=== PATIENT | male | born 1940 | race Caucasian/White ===

== ENCOUNTER → 2016-09-23 | Outpatient (CLI) | payer OTHER ==
[~2016-09-23] VITALS: Ht 175.3 cm; Wt 99.8 kg
[~2016-09-23] MED LIST: COMBIVENT RESPIM4 GM IH; CYMBALTA30 MG PO; DOXAZOSIN MESYLA8 MG PO; FINASTERIDE5 MG PO; NEURONTIN 300300 M1 PO; ROPINIROLE HCL2 MG PO; SINEMET 25-1001 EAC1 PO; SINEMET CR 50/21 TAB PO; XALATAN2.5 ML OPHTHALMIC
--- NOTE | ~2016-09-23 | P ---
[facility] [place] [address] PROCEDURE REPORT Name: LETTY MORGAN Room #: REG [facility]#: [id number] Admission: 09/23/16 Attend Phys: Vahid Holman MD Discharge: Date of : 40 Report #: [id number] THIS REPORT FOR: //name// CC: Miguel Holman DATE OF SERVICE: 09/23/2016 OUTPATIENT COLONOSCOPY REPORT BRIEF HISTORY: The patient is a 76-year-old male with a history of colon polyps, earlier this year, had a colonoscopy and flat polyps were identified in the proximal ascending colon. Biopsy revealed it to be tubular adenomas; however, the polyps were flat and due to his deep respiratory excursion ____ sleep apneic, there was too much colonic movement to remove these polyps. However, biopsies were obtained and there were tubular adenomas. He presents today for treatment or removal of these polyps. PREOPERATIVE DIAGNOSIS: Flat sessile polyps. POSTOPERATIVE DIAGNOSES: 1. Flat polyps, proximal ascending colon. 2. Moderately severe diverticulosis coli, primarily sigmoid colon. MEDICATIONS: Deep sedation with propofol per anesthesia. SPECIMEN: 1. Biopsies from proximal ascending colon polyp. 2. Polyp from proximal ascending colon. ESTIMATED BLOOD LOSS: 3 mL. PROCEDURE: Colonoscopy to cecum and terminal ileum with saline assisted polypectomy with biopsy and snare polypectomy as well as argon plasma coagulation of polypectomy site. FINDINGS: Prior to deep sedation, procedure of colonoscopy was discussed with the patient as well as potential risks and its complications including plans for removal of the polyps. He indicates that he understands and desires to proceed. DESCRIPTION OF PROCEDURE: With the patient in left lateral decubitus position, digital examination was completed, which revealed no abnormalities. Subsequently, the [employer] video colonoscope was introduced into the rectum and advanced under direct vision to the cecum. Done with some difficulty due to tortuosity of the colon, but cecum was reached, identified by the ileocecal [facility] [address] [place] [address] PROCEDURE REPORT Name: LETTY MORGAN Room #: REG [facility].#: [id number] Admission: 09/23/16 Attend Phys: Vahid Holman MD Discharge: Date of : 40 Report #: [id number] valve and the appendiceal orifice. At that point, the scope was slowly withdrawn and careful circumferential views obtained. Upon slow withdrawal of the scope, the prep was noted to be good. Mucosa normal limits, normal vascular pattern, normal light reflex. As we withdrew the scope in the very proximal ascending colon, there was a very subtle flat lesion with slight nodularity, very proximal ascending colon, it was probably 10-12 mm in length and 3-4 mm in width. It was elevated with saline. It was too flat to remove by snare and multiple biopsies were obtained. We then treated the polypectomy, started with argon plasma coagulation. Just very slightly distal to this lesion on the opposite wall, a stellate flat polypoid lesion was seen and it was probably about 8-9 mm in greatest dimension. It was removed with several passages of cold polypectomy snare as well as biopsies of residual fragments along the edge of the polypectomy site. Scope was further withdrawn and per the previous note, there was thought to be a polyp in the hepatic flexure. Biopsies were not obtained in the hepatic flexure. I could not find evidence of residual polyp in the region of the hepatic flexure. We withdrew the scope and the remaining mucosa appeared to be within normal limits. As we withdrew the scope through the sigmoid colon, he was noted to have moderately severe diverticular disease without endoscopic evidence of diverticulitis. The scope was withdrawn. Upon retroflexion, no abnormalities were seen. Scope was withdrawn. The patient tolerated the procedure well. CONDITION OF THE PATIENT UPON DISCHARGE: Following procedure, the patient was drowsy and he will be discharged home when fully ambulatory. INSTRUCTIONS TO THE PATIENT AND FAMILY AT THE TIME OF DISCHARGE: Two polyps removed and polypectomy sites treated as described above. We will follow up on the path report and make surveillance recommendations. More than likely, we will likely have him return in 1 year due to the difficulty removing these lesions as well as a piecemeal fashion removal. <ELECTRONICALLY SIGNED> By: Vahid Holman MD 09/24/16 0744 1221 2153 Vahid Holman MD /nt
--- NOTE | ~2016-09-23 | S ---
[facility] [place] [address] SURGICAL PATH RPT PROCEDURE Name: LETTY MORGAN Room #: REG [facility] M.Owen.#: [id number] Admission: 09/23/16 Date of : 40 Discharge: Report #: [id number] Path Case #: [id number] PATHOLOGY REPORT COLLECTION DATE: 09/23/2016 RECEIVED DATE: 09/23/2016 SUBMITTING PHYS: Dr. Vahid Holman OTHER PHYS: Dr. Miguel Pascual SPECIMEN(S) RECEIVED: A.Polyp @ proximal ascending colon B.Polyp @ proximal ascending colon * * * * * * * * * * * * FINAL DIAGNOSIS: A. Colonic mucosa "polyp at proximal ascending colon": - Fragments of tubular adenoma. - There is no evidence of high grade dysplasia or malignancy. B. Colonic mucosa "polyp at proximal ascending colon": - Fragments of tubular adenoma. - There is no evidence of high grade dysplasia or malignancy. (SHA:mm; 09/25/2016) PATHOLOGIST: Lyle Roth M.D. REPORT ELECTRONICALLY SIGNED BY: Lyle Roth M.D. DATE/TIME: 09/25/2016 10:27 * * * * * * * * * * * * GROSS PATHOLOGY: A. Received in formalin labeled "Letty Morgan, polyp at proximal ascending," and additionally labeled on requisition as, "polyp at proximal ascending colon," are six segments of arita soft tissue measuring 0.6 x 0.6 x 0.3 cm in aggregate dimensions and ranging from 0.2 to 0.3 cm in maximum dimension. The specimen is submitted entirely in cassette A1. B. Received in formalin labeled "Letty Morgan, polyp at proximal ascending," and additionally labeled on requisition as, "polyp at proximal ascending colon," are nine segments of arita soft tissue measuring 0.8 x 0.7 x 0.3 cm in aggregate dimensions and ranging from 0.1 to 0.3 cm in maximum dimension. The specimen is submitted entirely in cassette B1. (DAC; 09/24/2016) CLINICAL HISTORY: History of polyps [address] [address] SURGICAL PATH RPT PROCEDURE Name: LETTY MORGAN Room #: REG [facility] Weaver#: [id number] Admission: 09/23/16 Date of : 40 Discharge: Report #: [id number] Path Case #: [id number] INITIAL CPT CODE(S): A; 10322 B; 73143 Professional services performed by [facility] at [address], [place] [address] Technical services performed by [facility] at [address] [place] [address], [facility] [address] [address]. [facility] [address] [place] [address] PHONE: [phone] DIRECTOR: Ismael Anaya M.D. * * * END OF REPORT * * *
== END ==
LOC: GI 08:45
DX: Z09 Encounter for follow-up examination after completed treatment for conditions other than malignant neoplasm (principal); D12.2 Benign neoplasm of ascending colon; K57.30 Diverticulosis of large intestine without perforation or abscess without bleeding; G20 Parkinson's disease; F32.9 Major depressive disorder, single episode, unspecified; G47.33 Obstructive sleep apnea (adult) (pediatric); Z79.899 Other long term (current) drug therapy; Z87.01 Personal history of pneumonia (recurrent); Z87.891 Personal history of nicotine dependence; Z98.890 Other specified postprocedural states
CPT/HCPCS: 62110; 62900

== ENCOUNTER → 2018-12-03 | Outpatient (CLI) | payer OTHER ==
[~2018-12-03] VITALS: Ht 175.3 cm; Wt 97.5 kg
--- NOTE | 2018-12-04 10:55 | P ---
[facility] [place] [address] PROCEDURE REPORT Name: LETTY MORGAN Room #: REG [facility]#: [id number] Admission: 12/03/18 Attend Phys: Vahid Holman MD Discharge: Date of : 40 Report #: [id number] THIS REPORT FOR: //name// CC: Rickie Holman DATE OF SERVICE: 12/03/2018 OUTPATIENT COLONOSCOPY REPORT BRIEF HISTORY: The patient is a 78-year-old male with a history of multiple colon polyps for high risk screening colonoscopy. PREOPERATIVE DIAGNOSIS: High risk screening colonoscopy. POSTOPERATIVE DIAGNOSES: 1. Multiple colon polyps, proximal colon. 2. Moderately severe diverticulosis coli. 3. Internal hemorrhoids. MEDICATIONS: Deep sedation with propofol per anesthesia. SPECIMEN: Biopsy of polyp, ileocecal valve. ESTIMATED BLOOD LOSS: 3 mL. PROCEDURE: Colonoscopy to cecum and terminal ileum with biopsy and saline and Maria Victoria ink injection. FINDINGS: Prior to propofol sedation, the procedure of colonoscopy was discussed with the patient as well as potential risks, benefits and complications. He indicates he understands and desires to proceed. DESCRIPTION OF PROCEDURE: With the patient in left lateral decubitus position, digital examination was completed, which revealed no abnormalities. Subsequently, the Olympus video colonoscope was introduced in the rectum, advanced under direct vision to the cecum. Done with minimal difficulty. The cecum was identified by the ileocecal valve and the appendiceal orifice. I was able to visualize the distal segment of the terminal ileum, which was inspected and noted to be unremarkable. At that point, the scope was slowly withdrawn and careful circumferential views were obtained. As we withdrew the scope, he was noted to have multiple colonic polyps. No polyps were seen in the cecum. However, as we brought the scope back just above the cecum, there was noted to be a flat polyp, essentially on the edge of the ileocecal valve. It was very subtle. There was noted to be some scarring in the area. This was felt to be a site of previous snare polypectomy. The polyp was noted looking towards the [facility] [address] [place] [address] PROCEDURE REPORT Name: LETTY MORGAN Room #: REG [facility] Hull.#: [id number] Admission: 12/03/18 Attend Phys: Vahid Holman MD Discharge: Date of : 40 Report #: [id number] ileocecal valve from a distal view. It was flat and extended over the fold into the cecum. The proximal margin of this polyp could not be visualized. The polyp was at least 2 cm in greatest dimension, possibly more. It was flat and it was not ulcerated. There was no mass effect. We considered removal of this polyp and injected with saline, but unfortunately, after injection of saline, it became less visible instead of more visible. I think that with injection the proximal margin of the polyp actually went further into the cecal area. It was extremely flat and would not elevate well. Therefore, it was felt that we would not be able to remove this polyp endoscopically. We then obtained multiple biopsies. In addition, in the same vicinity, multiple polyps were seen. There were probably at least 5 polyps with the largest about 7-8 mm. They all were flat and all were subtle. We withdrew the scope in and out the ascending colon. On multiple passes, we saw multiple polyps of various sizes and shapes. For the most part, they were flat. They all had all, but one had appearance of an adenoma. At least one had appearance of a serrated adenoma. No large lesions were seen. The additional polyps seen were no more than 15-18 mm in greatest dimension. We counted at least 12 polyps up to the level of the hepatic flexure. It was felt that the best approach for this patient would be a right hemicolectomy since so many polyps were noted and the very difficult polyp in the very proximal ascending colon extending in the cecum was a site of a previous snare polypectomy and at this point, it appears the entire polyp had not been removed. In addition, the patient has sleep apnea and there was marked respiratory excursion of the colon, which made even biopsy very difficult because of the moving target. At that point, it was felt best to not attempt to remove all these polyps rather we placed 2 tattoo wright about the level of the hepatic flexure, which was felt to be the most distal extent of these multiple polyps. We withdrew the scope and in the proximal transverse colon, a diminutive polyp was seen and it was removed with biopsy forceps. The scope was further withdrawn and no additional polyps were seen. As we withdrew the scope through the sigmoid colon, there was noted to be moderately severe diverticular disease without endoscopic evidence of diverticulitis. Scope was withdrawn in the rectum and no abnormalities were noted until the scope was retroflexed and small hemorrhoids were seen. Scope was withdrawn. The patient tolerated the procedure well. CONDITION OF THE PATIENT UPON DISCHARGE: Following procedure, the patient was drowsy and arousable. He will be discharged home when fully ambulatory. INSTRUCTIONS TO THE PATIENT AND FAMILY AT THE TIME OF DISCHARGE: The patient with multiple polyps as noted above. We attempted to remove one polyp without success. Given the fact that he has had failed polypectomy in this vicinity before, it is felt the best option for the patient will be surgical management with right hemicolectomy. We will discuss further with the patient and have her return to see me in followup in the office to discuss. In addition, his sleep apnea makes it very difficult to work in his colon and remove polyps. If endoscopic removal was attempted, it would be ideal to intubate the patient to [facility] [address] [place] [address] PROCEDURE REPORT Name: LETTY MORGAN Room #: REG [facility] Della.#: [id number] Admission: 12/03/18 Attend Phys: Vahid Holman MD Discharge: Date of : 40 Report #: [id number] reduce his work of breathing from his sleep apnea. We will have him follow up in the office to discuss further. <ELECTRONICALLY SIGNED> By: Vahid Holman MD 12/04/18 1055 0948 2334 Vahid Holman MD /nt
--- NOTE | 2018-12-07 13:46 | PATH ---
[facility] [place] [address] PATHOLOGY RPT PROCEDURE Name: LETTY MORGAN Beto Room #: REG [facility] Hull.#: [id number] Admission: 12/03/18 Date of : 40 Discharge: Report #: [id number] Path Case #: [id number] [facility] Accession Number: [id number] . 01 Material submitted: . PART A: ileo-cecal valve - BX OF FLAT POLYYP AT ILEOCECAL VALVE PART B: colon - POLYP AT PROXIMAL TRANSVERSE COLON. Modifiers: proximal, transverse . 01 Clinical history: . Pre-OP DX: Hx polyps Post-OP DX: Multiple colon polyps, diverticulosis, hemorrhoids . 02 Diagnosis: A. "BX of flat polyp at ileocecal valve", biopsy: - Tubular adenoma; no high grade dysplasia. . B. "Polyp at proximal transverse colon", biopsy: - Tubular adenoma; no high grade dysplasia. . (DENISEW:amalia; 12/04/2018) QLM 12/04/2018 1149 Local . 02 Electronically signed: . Benita Link MD, Pathologist NPI- [id number] . 01 Gross description: . A. Received in formalin labeled "Letty Morgan, BX of flat polyp at ileocecal valve," are 5 segments of arita soft tissue measuring 1.1 x 0.9 x 0.3 cm in aggregate dimensions and ranging from 0.4 to 0.7 cm in maximum dimension. The specimen is submitted entirely in cassette A1. . B. Received in formalin labeled "Letty Morgan, polyp at proximal transverse colon," is a single segment of arita soft tissue measuring 0.5 cm in maximum dimension. The specimen is entirely submitted in cassette B1. (TSD; 12/03/2018) TOB/TOB 12/03/2018 1739 Local . 02 Pathologist provided ICD-10: D12.0, D12.3 . 02 CPT . 127343, 067450 Specimen Comment: A courtesy copy of this report has been sent to Specimen Comment: [phone], . Specimen Comment: Report sent to / [place] [address] PATHOLOGY RPT PROCEDURE Name: LETTY MORGAN [id number] Admission: 12/03/18 Date of : 40 Discharge: Report #: [id number] Path Case #: [id number] Performed at: 01 [facility] [address] [place] [address] [address], [place]orie [place], [place] [id number] MD Wayne Nathan MD Phone: [phone] Performed at: [address] [id number] MD Kimberly Ferro MD Phone: [phone]
== END | disposition home or self-care (01) ==
LOC: GI 07:54
DX: Z12.11 Encounter for screening for malignant neoplasm of colon (principal); Z86.010 Personal history of colon polyps; D12.0 Benign neoplasm of cecum; D12.2 Benign neoplasm of ascending colon; K57.30 Diverticulosis of large intestine without perforation or abscess without bleeding; K64.8 Other hemorrhoids; G20 Parkinson's disease; F32.9 Major depressive disorder, single episode, unspecified; F41.9 Anxiety disorder, unspecified; N40.0 Benign prostatic hyperplasia without lower urinary tract symptoms; Z98.890 Other specified postprocedural states; Z79.899 Other long term (current) drug therapy; Z98.41 Cataract extraction status, right eye; Z98.0 Intestinal bypass and anastomosis status; Z98.42 Cataract extraction status, left eye; Z87.891 Personal history of nicotine dependence; Z87.01 Personal history of pneumonia (recurrent)
CPT/HCPCS: 62110; 62900

== ENCOUNTER → 2020-05-08 | Outpatient (CLI) | payer OTHER | LOC: LAB 13:56 | PROVIDERS: ATTEND Anesthesiology | DX: Z20.822 Contact with and (suspected) exposure to COVID-19 (principal) ==